=== PATIENT | female | born 1985 | race African-American/Black ===

== ENCOUNTER 2020-11-25 16:53 | Emergency (ER) | payer OTHER ==
[~2020-11-25] VITALS: Ht 162.6 cm; Wt 67.1 kg
[2020-11-25 16:59] VITALS: BP 111/75
[2020-11-25] MEDS ORDERED: KETOROLAC 30 MG/ML VIAL IM ONE (17:45)
[2020-11-25] MEDS ORDERED: diphenhydrAMINE 50 MG CAP PO ONE (18:00)
[2020-11-25] MEDS ORDERED: METOCLOPRAMIDE 10 MG TAB PO ONE (18:00)
[2020-11-25] MEDS ORDERED: IBUP-2213 PO (18:25)
[2020-11-25] MEDS ORDERED: ONDA4TAB PO (18:25)
== END 2020-11-25 18:35 | disposition home or self-care (01) ==
LOC: MED 16:53
DX: S86.811A Strain of other muscle(s) and tendon(s) at lower leg level, right leg, initial encounter (principal); R51.9 Headache, unspecified; Z88.8 Allergy status to other drugs, medicaments and biological substances; W22.8XXA Striking against or struck by other objects, initial encounter; Y93.89 Activity, other specified; Y92.89 Other specified places as the place of occurrence of the external cause; Y99.8 Other external cause status
CPT/HCPCS: 73562; 96372; 99283; J1885; J8597; Q0163

== ENCOUNTER 2023-05-25 15:14 | Emergency (ER) | payer OTHER ==
[~2023-05-25] VITALS: Ht 162.6 cm; Wt 77.1 kg
[~2023-05-25 15:14] MED LIST: IBUP-2213 PO; ONDA4TAB PO
[2023-05-25 15:28] VITALS: BP 111/73; PULSE 73; RESP 22; TEMP 97.8; O2SAT 98
[2023-05-25] MEDS ORDERED: MORPHINE SULFATE 4 MG/ML SYR IVP ONE (15:40)
[2023-05-25] MEDS ORDERED: ONDANSETRON 4 MG/2 ML VIAL IVP ONE (15:40)
[2023-05-25] MEDS ORDERED: ACET-8905 PO (16:46)
[2023-05-25] MEDS ORDERED: IBUP-2213 PO (16:46)
[2023-05-25 17:22] VITALS: BP 115/65; PULSE 68; RESP 20; TEMP 98.1; O2SAT 98
== END 2023-05-25 17:22 | disposition home or self-care (01) ==
LOC: MED 15:14
DX: M25.462 Effusion, left knee (principal); M76.822 Posterior tibial tendinitis, left leg; Z79.899 Other long term (current) drug therapy
CPT/HCPCS: 29505; 73562; 96374; 96375; 99284; J2270; J2405

== ENCOUNTER 2023-07-09 18:56 | Emergency (ER) | payer OTHER ==
[~2023-07-09] VITALS: Ht 162.6 cm; Wt 82.1 kg
[~2023-07-09 18:56] MED LIST changes: +ACET-8905 PO
[2023-07-09 19:13] VITALS: BP 116/80; PULSE 84; RESP 20; TEMP 98.2; O2SAT 99
[2023-07-09] MEDS ORDERED: KETOROLAC 30 MG/ML VIAL IM ONE (19:25)
[2023-07-09] MEDS ORDERED: IBUP-2213 PO (19:37)
[2023-07-09] MEDS ORDERED: ACET-10509 PO (19:37)
[2023-07-09] MEDS ORDERED: AMOX-999 PO (19:37)
== END 2023-07-09 20:29 | disposition home or self-care (01) ==
LOC: MED 18:56
DX: S61.511A Laceration without foreign body of right wrist, initial encounter (principal); S61.213A Laceration without foreign body of left middle finger without damage to nail, initial encounter; W54.0XXA Bitten by dog, initial encounter; Y93.89 Activity, other specified; Y92.89 Other specified places as the place of occurrence of the external cause; Y99.8 Other external cause status
CPT/HCPCS: 73110; 73140; 99284; J1885

== ENCOUNTER 2023-10-13 20:58 | Emergency (ER) | payer OTHER ==
[~2023-10-13] VITALS: Ht 162.6 cm; Wt 77.1 kg
[~2023-10-13 20:58] MED LIST changes: +ACET-10509 PO; +AMOX-999 PO
[2023-10-13 21:11] VITALS: BP 129/83; PULSE 80; RESP 16; TEMP 98.2; O2SAT 97
[2023-10-13] MEDS ORDERED: MORPHINE SULFATE 10 MG/ML VIAL IVP ONE (21:30)
[2023-10-13 21:44] VITALS: BP 129/83; PULSE 80; RESP 16; O2SAT 99
[2023-10-13] MEDS ORDERED: ONDANSETRON 4 MG/2 ML VIAL IVP ONE (21:55)
[2023-10-13] MEDS ORDERED: KETOROLAC 30 MG/ML VIAL IVP ONE (22:45)
[2023-10-13] MEDS ORDERED: oxyCODONE/APAP 5/325 MG 1 TAB TAB PO ONE (22:45)
[2023-10-14] MEDS ORDERED: BACI-105 TP (00:05)
[2023-10-14] MEDS ORDERED: BACITRACIN OINT 500 UNITS/GM PKT TP ONE ×2 (00:19→00:20)
== END 2023-10-14 00:20 | disposition home or self-care (01) ==
LOC: MED 20:58
DX: T24.102A Burn of first degree of unspecified site of left lower limb, except ankle and foot, initial encounter (principal); T24.101A Burn of first degree of unspecified site of right lower limb, except ankle and foot, initial encounter; T31.0 Burns involving less than 10% of body surface; X08.8XXA Exposure to other specified smoke, fire and flames, initial encounter; Y93.89 Activity, other specified; Y92.89 Other specified places as the place of occurrence of the external cause; Y99.8 Other external cause status
CPT/HCPCS: 16020; 96374; 96375; 99284; J1885; J2270; J2405